=== PATIENT | male | born 1995 | race Caucasian/White ===

== ENCOUNTER 2021-01-02 01:39 | Emergency (ER) | payer OTHER ==
[2021-01-02 03:04] LABS: BASOPHIL 1.1 % (0-2); BILIRUBIN NEGATIVE (NEGATIVE); BLOOD NEGATIVE Ery/uL (NEGATIVE); CLARITY CLEAR (CLEAR); COLOR YELLOW (YELLOW); EOSINOPHIL 0.7 % (0-5); GLUCOSE (U) NORMAL (NORMAL); HCT 43.5 % (42.0-52.0); HGB 14.9 g/dl (13.2-18.0); LEUKOCYTES NEGATIVE Leu/uL (NEGATIVE); LYMPHOCYTE 27.9 % (15-48); MCH 31.6 pg (25.0-31.0); MCHC 34.3 g/dL (32.0-36.0); MCV 92.4 fL (78.0-100.0); MONOCYTE 11.4 % (0-12); MPV 11.1 fL (6.0-9.5); NEUTROPHIL 58.7 % (41-80); NITRITE NEGATIVE (NEGATIVE); NRBC 0; PLT 245 K/uL (150-400); PROTEIN TRACE (LOW) mg/dL (NEGATIVE); RBC 4.71 M/uL (4.70-6.00); WBC 8.4 K/uL (4.0-10.5)
[2021-01-02 03:05] LABS: AMPHETAMINES NEGATIVE (NEGATIVE); BARBITURATES NEGATIVE (NEGATIVE); ECSTASY (MDMA) NEGATIVE (NEGATIVE); MARIJUANA (THC) NEGATIVE (NEGATIVE); METHADONE NEGATIVE (NEGATIVE); OPIATES NEGATIVE (NEGATIVE); OXYCODONE NEGATIVE (NEGATIVE)
[2021-01-02 03:10] LABS: SQUAMOUS EPITHELIAL CELLS RARE; URINARY RBC RARE
[2021-01-02 03:11] LABS: MUCOUS TRACE; SPERM PRESENT
[2021-01-02 03:47] LABS: CREATININE 0.74 mg/dL (0.67-1.17); TOTAL PROTEIN 7.5 g/dL (6.4-8.2)
[2021-01-02 03:48] LABS: ALBUMIN 4.4 g/dL (3.4-5.0); BILIRUBIN - TOTAL 1.7 mg/dL (0.2-1.0); GLOBULIN (CALCULATION) 3.1 g/dL
[2021-01-02 04:07] LABS: LACTIC ACID 0.8 mmol/L (0.4-1.9)
[2021-01-02] MEDS ORDERED: ZOFRAN4 M1 PO (05:23)
== END 2021-01-02 05:40 | disposition home or self-care (01) ==
LOC: FER 01:39
PROVIDERS: Emergency Medicine
DX: R10.30 Lower abdominal pain, unspecified (principal)
CPT/HCPCS: 36415; 80053; 80305; 81001; 82150; 83605; 83690; 85025; J1885; J2270; J2405; J7030; Q9967